=== PATIENT | female | born 1960 | race African-American/Black ===

== ENCOUNTER 2017-07-18 12:45 | Emergency (ER) | payer OTHER | END 2017-07-18 14:30 | disposition left against medical advice (07) | LOC: ER 12:45 | DX: R73.9 Hyperglycemia, unspecified (principal) | CPT/HCPCS: 93005 ==

== ENCOUNTER 2020-12-17 02:28 | Inpatient (IN) | payer OTHER ==
[~2020-12-17] VITALS: Ht 165.1 cm; Wt 78.9 kg
[2020-12-17] VITALS (7 sets, daily range): BP systolic 118–151; BP diastolic 66–82
[2020-12-17] MEDS ORDERED: ONDANSETRON HCL INJ 2MG/ML 2ML 2 MG/ML VIAL IV STA ×2 (02:56→07:40)
[2020-12-17] MEDS ORDERED: MORPHINE SULFATE INJ 2 MG/ML SYR IV STA (02:56)
[2020-12-17] MEDS ORDERED: SODIUM CHLORIDE 0.9% 1000ML 1,000 ML IV SCH ×2 (03:00→08:15)
[2020-12-17] MEDS ORDERED: MORPHINE SULFATE INJ 4 MG/ML INJ 1ML ONE (03:10)
[2020-12-17 03:31] LABS: BASOPHILS % 0.4 % (0.0-1.0); EOSINOPHILS # (AUTO) 0.1 (0.0-0.4); EOSINOPHILS % 0.7 % (0.0-6.0); HEMATOCRIT 41.7 % (34.2-44.1); HEMOGLOBIN 13.6 g/dL (12.0-16.0); LYMPHOCYTES # (AUTO) 2.8 (1.0-3.2); LYMPHOCYTES % 32.4 % (18.0-39.1); MEAN CORPUSCULAR HEMOGLOBIN 29.1 pg (28-32); MEAN CORPUSCULAR HGB CONC 32.6 g/dL (31-35); MEAN CORPUSCULAR VOLUME 89.1 fL (81-99); MONOCYTES # (AUTO) 0.6 (0.2-0.8); MONOCYTES % 6.5 % (4.4-11.3); NEUTROPHILS # (AUTO) 5.1 (2.1-6.9); NEUTROPHILS % 59.6 % (38.7-80.0); PLATELET COUNT 239 x10e3/uL (140-360); RED BLOOD COUNT 4.68 x10e6/uL (3.6-5.1); RED CELL DISTRIBUTION WIDTH 13.2 % (11.7-14.4)
[2020-12-17 03:41] LABS: INR 0.95; PROTHROMBIN TIME 12.9 seconds (11.9-14.5)
[2020-12-17 03:42] LABS: PARTIAL THROMBOPLASTIN TIME 28.6 seconds (23.8-35.5)
[2020-12-17] MEDS ORDERED: METHYLPREDNISOLONE SOD SUCC 125 MG/2ML VIAL IV ONE (03:45)
[2020-12-17] MEDS ORDERED: DIPHENHYDRAMINE HCL INJ 50 MG/ML VIAL IV ONE (03:45)
[2020-12-17 03:47] LABS: AMYLASE 67 U/L (25-125); LIPASE 5 U/L (8-78)
[2020-12-17 03:49] LABS: ALBUMIN 3.9 g/dL (3.5-5.0); ALBUMIN/GLOBULIN RATIO 1.2 (0.8-2.0); ANION GAP 12.7 mmol/L (8-16); CREATININE, SERUM 0.79 mg/dL (0.57-1.11); POTASSIUM 3.7 mmol/L (3.5-5.1)
[2020-12-17] MEDS ORDERED: METHYLPREDNISOLONE SOD SUCC 125 MG/2ML VIAL ONE (03:53)
[2020-12-17 04:02] LABS: BACTERIA,URINE MODERATE /HPF; CLARITY,URINE CLOUDY (CLEAR); COLOR,URINE YELLOW (YELLOW); EPITHELIAL CELLS,URINE MANY /LPF; LEUKOCYTE ESTERASE ,URINE NEGATIVE (NEGATIVE); MUCUS,URINE MANY (RARE); RBC,URINE 0-5 /HPF (0-5)
[2020-12-17 04:03] LABS: KETONES,URINE NEGATIVE (NEGATIVE); NITRITE,URINE NEGATIVE (NEGATIVE); PROTEIN,URINE DIPSTICK NEGATIVE (NEGATIVE); URINE UROBILINOGEN 0.2 mg/dL (0.2 - 1)
[2020-12-17] MEDS ORDERED: IOPAMIDOL 370 MG/ML 200 ML INFUS..BTL INJ ONE (04:29)
[2020-12-17] MEDS ORDERED: SODIUM CHLORIDE 0.9% 100 ML ONE (04:30)
[2020-12-17] MEDS ORDERED: PIPERACILLIN/TAZOBACTAM 3.375 GM in SODIUM CHLORIDE 0.9% 50ML 50 ML IV SCH (05:07)
[2020-12-17] MEDS ORDERED: HYDROMORPHONE 1MG/1ML INJ ONE (05:13)
[2020-12-17] MEDS ORDERED: HYDROMORPHONE 1MG/1ML INJ IV ONE (05:15)
[2020-12-17] MEDS ORDERED: MORPHINE SULFATE INJ 4 MG/ML INJ 1ML IV STA (07:40)
[2020-12-17] MEDS ORDERED: METHYLPREDNISOLONE SOD SUCC 125 MG/2ML VIAL IV STA (07:40)
[2020-12-17] MEDS ORDERED: MORPHINE SULFATE INJ 4 MG/ML INJ 1ML IV PRN (08:15)
[2020-12-17] MEDS: METRONIDAZOLE 500MG/NS 100ML 100 ML IV SCH ×4 (08:32→17:20)
[2020-12-17] MEDS: PIPERACILLIN/TAZOBACTAM 3.375 GM in SODIUM CHLORIDE 0.9% 50ML 50 ML IV SCH ×4 (08:33→23:46)
[2020-12-17] MEDS ORDERED: LISINOPRIL20 MG PO (08:34)
[2020-12-17] MEDS ORDERED: ONDANSETRON HCL8 MG PO (08:34)
[2020-12-17] MEDS ORDERED: SIMVASTATIN20 MG PO (08:34)
[2020-12-17] MEDS ORDERED: METFORMIN HCL500 MG PO (08:34)
[2020-12-17] MEDS ORDERED: ASPIRIN325 MG PO (10:00)
[2020-12-17] MEDS ORDERED: OZEMPIC1 MG/0.75 SC (10:00)
[2020-12-17] MEDS ORDERED: TIZANIDINE HCL4 M1 PO (10:00)
[2020-12-17] MEDS: HYDROMORPHONE 1MG/1ML INJ IV PRN ×3 (10:20→20:43)
[2020-12-17] MEDS: ONDANSETRON HCL INJ 2MG/ML 2ML 2 MG/ML VIAL IV PRN ×3 (10:20→20:43)
[2020-12-17] MEDS ORDERED: CLIMARA PRO PA1 EACH TOP (10:24)
[2020-12-17] MEDS ORDERED: HYDRALAZINE HCL 20 MG/ML VIAL IV PRN (11:00)
[2020-12-17] MEDS ORDERED: ACETAMINOPHEN 325 MG TAB PO PRN (11:00)
[2020-12-17] MEDS ORDERED: TIZANIDINE HCL 4 MG TAB PO PRN (11:15)
[2020-12-17] MEDS ORDERED: SODIUM CHLORIDE 0.9% 250ML 250 ML ONE (11:41)
[2020-12-17 14:09] LABS: BASOPHILS % 0.1 % (0.0-1.0); HEMOGLOBIN 12.1 g/dL (12.0-16.0); LYMPHOCYTES # (AUTO) 0.8 (1.0-3.2); LYMPHOCYTES % 11.6 % (18.0-39.1); MEAN CORPUSCULAR HEMOGLOBIN 29.2 pg (28-32); MEAN CORPUSCULAR HGB CONC 31.8 g/dL (31-35); MEAN CORPUSCULAR VOLUME 91.6 fL (81-99); MONOCYTES # (AUTO) 0.1 (0.2-0.8); MONOCYTES % 0.7 % (4.4-11.3); NEUTROPHILS % 87.5 % (38.7-80.0); PLATELET COUNT 216 x10e3/uL (140-360); RED BLOOD COUNT 4.15 x10e6/uL (3.6-5.1); RED CELL DISTRIBUTION WIDTH 13.2 % (11.7-14.4)
[2020-12-17] MEDS: LISINOPRIL 20 MG TAB PO SCH (16:33)
[2020-12-17] MEDS ORDERED: LEVONORGESTREL TOP SCH (18:00)
[2020-12-17] MEDS ORDERED: ESTRADIOL TOP SCH (18:00)
[2020-12-17 18:32] LABS: BASOPHILS % 0.1 % (0.0-1.0); HEMATOCRIT 37.9 % (34.2-44.1); LYMPHOCYTES % 12.4 % (18.0-39.1); MEAN CORPUSCULAR HEMOGLOBIN 29.1 pg (28-32); MEAN CORPUSCULAR HGB CONC 31.7 g/dL (31-35); MONOCYTES # (AUTO) 0.3 (0.2-0.8); MONOCYTES % 3.1 % (4.4-11.3); NEUTROPHILS # (AUTO) 7.1 (2.1-6.9); NEUTROPHILS % 84.2 % (38.7-80.0); PLATELET COUNT 225 x10e3/uL (140-360); RED BLOOD COUNT 4.12 x10e6/uL (3.6-5.1); RED CELL DISTRIBUTION WIDTH 13.2 % (11.7-14.4)
[2020-12-17] MEDS ORDERED: BISACODYL 5 MG TAB EC PO ONE ×2 (22:45→23:45)
[2020-12-18] VITALS (8 sets, daily range): BP systolic 114–160; BP diastolic 72–84
[2020-12-18] MEDS: METRONIDAZOLE 500MG/NS 100ML 100 ML IV SCH ×4 (00:38→22:55)
[2020-12-18] MEDS: ONDANSETRON HCL INJ 2MG/ML 2ML 2 MG/ML VIAL IV PRN ×4 (00:48→21:53)
[2020-12-18] MEDS: HYDROMORPHONE 1MG/1ML INJ IV PRN ×4 (00:48→21:53)
[2020-12-18] MEDS: DIPHENHYDRAMINE HCL 25 MG CAP PO PRN ×2 (01:34→08:01)
[2020-12-18] MEDS ORDERED: CITRATE OF MAGNESIA 300ML BOTTLE PO ONE ×2 (05:00→07:00)
[2020-12-18] MEDS: PIPERACILLIN/TAZOBACTAM 3.375 GM in SODIUM CHLORIDE 0.9% 50ML 50 ML IV SCH ×3 (05:14→22:00)
[2020-12-18 05:17] LABS: BASOPHILS % 0.2 % (0.0-1.0); EOSINOPHILS % 0.2 % (0.0-6.0); HEMATOCRIT 34.5 % (34.2-44.1); HEMOGLOBIN 11.2 g/dL (12.0-16.0); LYMPHOCYTES # (AUTO) 1.9 (1.0-3.2); MEAN CORPUSCULAR HEMOGLOBIN 29.3 pg (28-32); MEAN CORPUSCULAR HGB CONC 32.5 g/dL (31-35); MEAN CORPUSCULAR VOLUME 90.3 fL (81-99); MONOCYTES # (AUTO) 0.8 (0.2-0.8); MONOCYTES % 6.9 % (4.4-11.3); NEUTROPHILS # (AUTO) 8.9 (2.1-6.9); NEUTROPHILS % 76.4 % (38.7-80.0); PLATELET COUNT 205 x10e3/uL (140-360); RED BLOOD COUNT 3.82 x10e6/uL (3.6-5.1); RED CELL DISTRIBUTION WIDTH 13.2 % (11.7-14.4)
[2020-12-18 05:44] LABS: ALBUMIN 3.5 g/dL (3.5-5.0); ALBUMIN/GLOBULIN RATIO 1.3 (0.8-2.0); ANION GAP 11.6 mmol/L (8-16); CALCIUM 8.5 mg/dL (8.4-10.2); CREATININE, SERUM 0.82 mg/dL (0.57-1.11); POTASSIUM 3.6 mmol/L (3.5-5.1)
[2020-12-18 05:51] LABS: FERRITIN 127.71 ng/mL (4.63-204.00)
[2020-12-18 06:14] LABS: PHOSPHORUS 3.4 MG/DL (2.3-4.7)
[2020-12-18] MEDS: LISINOPRIL 20 MG TAB PO SCH (08:39)
[2020-12-18] MEDS: SODIUM FERRIC GLUCONATE COMPLX 125 MG in SODIUM CHLORIDE 0.9% 100 ML 100 ML IV SCH (09:44)
[2020-12-18] MEDS ORDERED: HYOSCYAMINE SULFATE 0.5 MG/ML INJ ONE (12:04)
[2020-12-18] MEDS ORDERED: PROPOFOL IV EMULSION 10 MG/ML 20 ML VIAL ONE (12:04)
[2020-12-18] MEDS ORDERED: LIDOCAINE HCL 2% LOCAL INJ 5 ML SDV VIAL INJ ONE (12:04)
[2020-12-18] MEDS ORDERED: GLUCAGON FOR INJ 1 MG VIAL ONE (12:04)
[2020-12-18] MEDS ORDERED: DEXTROSE 50% SYRINGE 50 ML IV STA (15:18)
[2020-12-18 19:12] LABS: WBC,FECAL (FECAL LACTOFERRIN) NEGATIVE (NEGATIVE)
[2020-12-18] MEDS ORDERED: SODIUM CHLORIDE 0.9% 250ML 250 ML ONE (21:54)
[2020-12-19] VITALS (7 sets, daily range): BP systolic 123–153; BP diastolic 66–86
[2020-12-19] MEDS: DIPHENHYDRAMINE HCL 25 MG CAP PO PRN (00:37)
[2020-12-19 05:16] LABS: BASOPHILS % 0.4 % (0.0-1.0); EOSINOPHILS # (AUTO) 0.2 (0.0-0.4); HEMOGLOBIN 10.7 g/dL (12.0-16.0); LYMPHOCYTES # (AUTO) 2.3 (1.0-3.2); MEAN CORPUSCULAR HEMOGLOBIN 28.8 pg (28-32); MEAN CORPUSCULAR HGB CONC 31.5 g/dL (31-35); MEAN CORPUSCULAR VOLUME 91.6 fL (81-99); MONOCYTES # (AUTO) 0.6 (0.2-0.8); MONOCYTES % 7.5 % (4.4-11.3); NEUTROPHILS # (AUTO) 4.3 (2.1-6.9); NEUTROPHILS % 58.8 % (38.7-80.0); PLATELET COUNT 195 x10e3/uL (140-360); RED BLOOD COUNT 3.71 x10e6/uL (3.6-5.1); RED CELL DISTRIBUTION WIDTH 13.5 % (11.7-14.4)
[2020-12-19] MEDS: ONDANSETRON HCL INJ 2MG/ML 2ML 2 MG/ML VIAL IV PRN (05:45)
[2020-12-19] MEDS: HYDROMORPHONE 1MG/1ML INJ IV PRN (05:45)
[2020-12-19] MEDS: PIPERACILLIN/TAZOBACTAM 3.375 GM in SODIUM CHLORIDE 0.9% 50ML 50 ML IV SCH ×4 (05:48→13:20)
[2020-12-19] MEDS: METRONIDAZOLE 500MG/NS 100ML 100 ML IV SCH ×3 (06:24→14:00)
[2020-12-19] MEDS: LISINOPRIL 20 MG TAB PO SCH (08:45)
[2020-12-19] MEDS: SODIUM FERRIC GLUCONATE COMPLX 125 MG in SODIUM CHLORIDE 0.9% 100 ML 100 ML IV SCH ×2 (08:50→12:36)
[2020-12-19] MEDS ORDERED: SEMAGLUTIDE SC SCH (09:00)
[2020-12-19 14:30] LABS: C DIFFICILE TOXIN A&B AMP PROB NEGATIVE (NEGATIVE)
[2020-12-19] MEDS ORDERED: ACETAMINOPHEN325 M1 PO (16:02)
[2020-12-19] MEDS ORDERED: VITAMIN C500 MG PO (16:02)
[2020-12-19] MEDS ORDERED: FLAGYL500 MG PO (16:02)
[2020-12-19] MEDS ORDERED: CIPRO500 MG PO (16:02)
[2020-12-19] MEDS ORDERED: FERROUS SULFAT325 MG PO (16:02)
== END 2020-12-19 17:12 | disposition home or self-care (01) | DRG 393 ==
LOC: ER 02:53 → ERHOLD 08:04 → MED/SURG 09:05
PROVIDERS: ADMIT Internal Medicine; ATTEND Internal Medicine
PROC: 0DBB8ZX Excision of Ileum, Via Natural or Artificial Opening Endoscopic, Diagnostic (ICD-10-PCS; 2020-12-18)
PROC: 0DBN8ZZ Excision of Sigmoid Colon, Via Natural or Artificial Opening Endoscopic (ICD-10-PCS; principal; 2020-12-18 14:30)
DX: K55.9 Vascular disorder of intestine, unspecified (principal); K57.31 Diverticulosis of large intestine without perforation or abscess with bleeding; K51.911 Ulcerative colitis, unspecified with rectal bleeding; K57.30 Diverticulosis of large intestine without perforation or abscess without bleeding; K63.5 Polyp of colon; K64.8 Other hemorrhoids; E11.9 Type 2 diabetes mellitus without complications; E78.5 Hyperlipidemia, unspecified; D50.9 Iron deficiency anemia, unspecified; H91.90 Unspecified hearing loss, unspecified ear; F17.210 Nicotine dependence, cigarettes, uncomplicated; Z79.4 Long term (current) use of insulin; Z20.822 Contact with and (suspected) exposure to COVID-19
CPT/HCPCS: 36415; 45380; 74174; 80053; 81001; 82150; 82607; 82728; 82746; 82948; 83540; 83630; 83690; 83735; 83993; 84100; 84466; 85025; 85045; 85610; 85730; 86850; 86900; 87045; 87086; 87177; 87328; 87493; 88305; 93306; 93931; 99284; J1170; J1200; J1610; J1980; J2001; J2270; J2405; J2543; J2916; J2930; J7030; J7050; J7799; Q9967; U0002